=== PATIENT | female | born 2000 | race Two or more races ===

== ENCOUNTER → 2025-08-22 | Outpatient (CLI) | payer OTHER ==
[2025-08-22 18:00] LABS: BASO # 0.0 10^3/uL (0.0-0.2); BASO % 0.4 % (0.0-1.0); EOS # 0.3 10^3/uL (0.0-0.5); EOS % 3.4 % (0.0-3.0); LYMPH # 2.3 10^3/uL (1.5-5.0); LYMPH % 25.1 % (24.0-44.0); MONO # 0.8 10^3/uL (0.0-0.8); MONO % 8.2 % (2.0-8.0); NEUTROPHILS # 5.7 10^3/uL (1.5-8.5); NEUTROPHILS % 62.7 % (36.0-66.0); PLATELET COUNT, AUTOMATED 319 10^3/uL (150-450)
[2025-08-22 18:08] LABS: ESTIMATED AVERAGE GLUCOSE 177.0 MG/DL (60-110)
[2025-08-22 18:22] LABS: ALT/SGPT 20 U/L (7.0-40); AST/SGOT 20 U/L (<34); CALCIUM LEVEL 9.4 MG/DL (8.5-10.1); CARBON DIOXIDE LEVEL 26 MMOL/L (20-31); CHLORIDE LEVEL 103 MMOL/L (98-107); CHOLESTEROL LEVEL 194 MG/DL (<200); CHOLESTEROL RISK RATIO 2.36 (<5); CREATININE FOR GFR 0.73 MG/DL (0.55-1.30); GLOMERULAR FILTRATION RATE > 90.0 (>60); LDL CHOLESTEROL 86.1 MG/DL (<100); NON-HDL-C 111.9 MG/DL; POTASSIUM SERUM 4.0 MMOL/L (3.5-5.1); SODIUM LEVEL 137 MMOL/L (136-145); TRIGLYCERIDES LEVEL 129 MG/DL (<150)
== END ==
LOC: M LAB 17:24
PROVIDERS: ATTEND Student in an Organized Health Care Education/Training Program
DX: E10.9 Type 1 diabetes mellitus without complications (principal)